=== PATIENT | female | born 1965 | race Caucasian/White ===

== ENCOUNTER 2018-02-11 03:39 | Emergency (ER) | payer OTHER ==
[~2018-02-11] VITALS: Ht 167.6 cm; Wt 131.5 kg
[2018-02-11 03:44] VITALS: Ht 167.6 cm; Wt 131.5 kg
[2018-02-11 04:27] LABS: BASOPHIL % 0.9 % (0-2); PLATELET COUNT 186 x10^3mcL (130-400); RED CELL DISTRIBUTION WIDTH 13.7 % (11.5-14.5)
[2018-02-11 04:30] LABS: CALCIUM 8.6 mg/dL (8.5-10.1); CARBON DIOXIDE 31.6 mmol/L (21-32); CHLORIDE SERUM 101 mmol/L (98-107); CREATININE SERUM 0.9 mg/dL (0.6-1.0); GFR1 > 60 mL/min; GLUCOSE SERUM 126 mg/dL (74-106); POTASSIUM SERUM 3.6 mmol/L (3.5-5.1); SODIUM SERUM 138 mmol/L (136-145)
[2018-02-11 04:35] LABS: ALBUMIN 3.3 g/dL (3.4-5.0); ALKALINE PHOSPHATASE 133 U/L (46-116); ALT/SGPT 19 U/L (14-59); AST/SGOT 12 U/L (15-37); BILIRUBIN TOTAL 0.56 mg/dL (0.20-1.00); TOTAL PROTEIN, SERUM 7.4 g/dL (6.4-8.2)
[2018-02-11] MEDS ORDERED: LOSARTAN POTASS25 M1 (05:50)
[2018-02-11] MEDS ORDERED: LEVO-T50 MCG (05:50)
[2018-02-11] MEDS ORDERED: ANASTROZOLE1 M1 (05:51)
[2018-02-11] MEDS ORDERED: COMPAZINE10 M1 (05:51)
[2018-02-11] MEDS ORDERED: NATURAL IRON65 MG (05:52)
[2018-02-11] MEDS ORDERED: CALCIUM + D3 E1 EACH (05:52)
[2018-02-11 07:42] VITALS: BP 148/92
== END 2018-02-11 07:42 | disposition home or self-care (01) ==
LOC: ED 03:39
PROVIDERS: Emergency Medicine
DX: R07.89 Other chest pain (principal); I10 Essential (primary) hypertension; E03.9 Hypothyroidism, unspecified; Z85.3 Personal history of malignant neoplasm of breast
CPT/HCPCS: 83880; 85378; J2270; Q0092; Q9967